=== PATIENT | male | born 2000 | race Hispanic/Latino ===

== ENCOUNTER 2024-06-03 17:22 | Emergency (ER) | payer OTHER ==
[~2024-06-03] VITALS: Ht 177.8 cm; Wt 81.7 kg
[2024-06-04 01:07] VITALS: BP 147/75; TEMP 97.8; O2SAT 99
== END 2024-06-04 01:30 | disposition home or self-care (01) ==
LOC: M ED 17:22
DX: R41.3 Other amnesia (principal); F17.200 Nicotine dependence, unspecified, uncomplicated